=== PATIENT | male | born 1930 | race Caucasian/White ===

== ENCOUNTER 2017-10-17 14:11 | Emergency (ER) | payer OTHER ==
[~2017-10-17] VITALS: Ht 180.3 cm; Wt 106.6 kg
--- NOTE | ~2017-10-17 | EKG ---
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
[2017-10-17 14:32] LABS: HEMATOCRIT 40.6 % (42.0-52.0); HEMOGLOBIN 12.8 gm/dL (14.0-18.0); MCH 31.1 pg (26.0-34.0); MCHC 31.5 g/dL (28.0-37.0); MCV 98.7 fL (80.0-100.0); RBC 4.12 mil/uL (4.50-6.00); RDW 15.3 % (10.5-14.5); WBC 10.6 thou/uL (4.0-11.0)
[2017-10-17 14:34] LABS: BE(vivo) -13.7 mmol/L (-2 to +3); HCO3 19.6 mmol/L (22.0-26.0); PO2 130.9 mmHg (80.0-100.0); sO2 96.4 % (92.0-98.0)
[2017-10-17 14:35] LABS: PCO2 87.2 mmHg (35.0-45.0)
[2017-10-17 14:41] LABS: ANION GAP 15 mmol/L (7-16); BUN 33 mg/dL (7-18); CHLORIDE 102 mmol/L (98-107); CO2 23 mmol/L (21-32); CREATININE 1.7 mg/dL (0.7-1.3); GLUCOSE 246 mg/dL (74-106); POTASSIUM 4.4 mmol/L (3.5-5.1); SODIUM 140 mmol/L (136-145)
[2017-10-17 14:50] LABS: TROPONIN-I < 0.04 ng/mL (<0.06)
[2017-10-17 15:22] LABS: APTT 52.4 Seconds (24.5-32.8); PROTIME 48.9 Seconds (9.3-11.4)
[2017-10-17 15:31] LABS: INR 4.9
[2017-10-17] MEDS ORDERED: COUMADIN 2.5MG2.5 M1 PO (18:00)
[2017-10-17] MEDS ORDERED: ASPIR 8181 MG PO (18:00)
[2017-10-17] MEDS ORDERED: SINEMET 25-1001 EAC1 PO (18:00)
[2017-10-17] MEDS ORDERED: LISINOPRIL5 MG PO (18:01)
[2017-10-17] MEDS ORDERED: POTASSIUM20 PO (18:02)
[2017-10-17 18:51] LABS: POC CREATININE 1.2 mg/dL (0.6-1.3); POC HEMOGLOBIN 13.9 g/dL (14.0-18.0)
[2017-10-17] MEDS ORDERED: BUMETANIDE0.25 MG/1 IM (19:07)
== END 2017-10-17 19:44 ==
LOC: ER 14:11
PROVIDERS: Emergency Medicine
DX: I46.9 Cardiac arrest, cause unspecified (principal); E11.9 Type 2 diabetes mellitus without complications; G20 Parkinson's disease; Z95.1 Presence of aortocoronary bypass graft